=== PATIENT | female | born 1950 | race Caucasian/White ===

== ENCOUNTER 2021-09-26 10:09 | Outpatient (CLI) | payer MEDICARE, BC, SELFPAY ==
--- NOTE | 2021-09-26 10:15 | MR_ITS ---
[address] [address] Phone:?[phone] Fax:?[phone] Referring Physician Information: Martine Bryant [address] [facility] [address] Phone:?[phone] Fax:?[phone] Patient:Bassam Lugo D.O.B:?1950 Sex:?Female Phone:?[phone] [facility] MRN:?[id number] Exam Date:?09/26/2021 ? EXAM: MRI of the RIGHT KNEE, without contrast CLINICAL: Right knee pain. Evaluate for medial meniscal tear. COMPARISONS: None available. TECHNICAL: MR sequences of the right knee: sagittals: PD, PDFS coronals: PD, T2FS axials: PD, PDFS SEDATION: None. CONTRAST: None. FINDINGS: Ligaments: ACL: Intact ACL anteromedial and posterolateral bundles, without sprain or tear. PCL: Intact PCL, without acute or chronic injury. MCL: Intact MCL superficial and deep layers, without injury. LCL: Intact LCL, without injury. Posterolateral corner: Popliteus, biceps femoris, iliotibial band, and the popliteofibular ligament appear intact. Posteromedial corner: Semimembranosus, pes anserine tendons and posterior oblique ligament appear intact. Extensor mechanism: Patellar tendon: Intact, without tendinopathy. Quadriceps tendon: Intact, without tendinopathy. Retinacula: Medial and lateral retinacula are intact. Fat pads: Unremarkable infrapatellar Hoffa's, quadriceps and prefemoral fat pads. Patellofemoral joint: Patella: High-grade/full-thickness chondral loss involves the patellar median ridge extending into the medial and lateral patellar facets with mild subchondral reactive edema involving the patellar median ridge. Trochlea: No significant chondromalacia. Medial compartment: Medial meniscus: There is complex tearing involving the posterior horn on sagittal series 6 image 19-24 and also seen to involve the body segment on coronal series 8 images 16-19. There is displacement of a small meniscal flap fragment along the undersurface of the body segment as seen on coronal series 8 image 17. Medial cartilage: High-grade/full-thickness chondral loss involves the lateral aspect of the posterior weightbearing medial femoral condyle on sagittal series 6 image 20 and coronal series 8 image 20. Moderate chondral thinning involving the remainder of the weightbearing medial femoral condyle. Full-thickness chondral loss involves the peripheral posterior nonweightbearing medial femoral condyle on axial series 4 image 17. Lateral compartment: Lateral meniscus: Ill-defined degenerative fraying/tearing involves the posterior horn extending into the posterior root fibers on sagittal series 6 image 13-14. Minimal degenerative fraying/tearing involving the superior articular surface of the body segment on coronal series 8 image 16-17. Ill- defined degenerative fraying/tearing involves the anterior horn on sagittal series 6 images 9-12 with mucoid degeneration of the anterior root fibers. Lateral cartilage: There is heterogeneity of the lateral tibial plateau cartilage with grade 2-3 chondral thinning seen to involve the lateral tibial plateau. Lateral femoral condyle cartilage is preserved. Knee joint: Effusion: Small right knee effusion. Intra-articular bodies:?No convincing bodies identified. Popliteal cyst: Small. Bones: There is mild marrow edema and apparent small osseous impaction injury involving the peripheral medial tibial plateau adjacent to the medial meniscus on coronal series 8 images 16-18. Anterior knee subcutaneous soft tissue edema is demonstrated with prepatellar bursitis along the anterior patella and patellar tendon. IMPRESSION: 1. Tearing of the medial meniscus as above, with displacement of a meniscal flap fragment along the undersurface of the body segment. Mild marrow edema and apparent small osseous impaction injury involving the peripheral medial tibial plateau adjacent to the medial meniscal tear. 2. Scattered ill-defined degenerative fraying/tearing involving the lateral meniscus. 3. Tricompartmental chondromalacia as above. 4. Small joint effusion with a small popliteal cyst. 5. Prepatellar bursitis with adjacent anterior knee subcutaneous soft tissue edema. DELORESZ Electronically signed on 09/26/2021 12:33:00 PM by Hola Mejia D.O.
== END 2021-09-26 10:10 | disposition home or self-care (01) ==
LOC: MRI 10:09
PROVIDERS: PCP Family Medicine; Visit Provider Physician Assistant Surgical
DX: M25.561 Pain in right knee (principal); S83.241A Other tear of medial meniscus, current injury, right knee, initial encounter; M25.461 Effusion, right knee; M71.21 Synovial cyst of popliteal space [Baker], right knee; M70.41 Prepatellar bursitis, right knee; S83.281A Other tear of lateral meniscus, current injury, right knee, initial encounter
CPT/HCPCS: 73721

== ENCOUNTER 2021-10-20 06:29 | Day surgery (SDC) | payer MEDICARE, BC, SELFPAY ==
[2021-10-20] VITALS (11 sets, daily range): BP systolic 92–116; BP diastolic 53–63; PULSE 55–72; RESP 16–20; TEMP 35.8–36.7; O2SAT 94–100; BMI 26.8
[2021-10-20] MEDS: LACTATED RINGERS 1000 ML 1,000 ML 100 ML IV (07:00)
[2021-10-20] MEDS: SODIUM CHLORIDE 0.9 % (FLUSH) 10 ML SYRINGE IVF (07:09)
[2021-10-20] MEDS: CEFAZOLIN 2 GM INJ IVP (07:40)
[2021-10-20] MEDS: BUPIVACAINE 0.25% 30 ML INJECTION (08:07)
--- NOTE | 2021-10-20 08:14 | PM.ORPRC ---
Procedure Note Date of procedure: 10/20/21 Procedure: SURGEON: Brett Powell MD POLYSILICON PREPARATION WORKER: Flakita Escobedo PA-C PREOPERATIVE DIAGNOSIS: Right knee medial and lateral meniscus tear POSTOPERATIVE DIAGNOSIS: Right knee medial and lateral meniscus tear NAME OF OPERATION: Right knee arthroscopic partial medial and lateral meniscectomy ANESTHESIA: Spinal ESTIMATED BLOOD LOSS: 0 mL COMPLICATIONS: None SPECIMENS: None DRAINS: None PREOPERATIVE ANTIBIOTICS: Ancef 2 gram INDICATIONS: The patient is a 71-year-old female with a history of right knee pain. MRI scan is consistent with the diagnoses above . Despite appropriate nonoperative management, including activity modification, antiinflammatories, [id number] pain medication, bracing, physical therapy, and injections they continue to have pain and disability. Operative intervention was offered. The risks, benefits and expected outcomes were discussed in detail. These included but were not limited to: Infection, bleeding, injury to blood vessel or nerve, venous thromboembolism. All questions were answered to their satisfaction. PROCEDURE: Spinal anesthesia was administered. The patient was placed supine on the operating room table. The right lower extremity was prepped and draped in the usual sterile fashion. The limb was exsanguinated with the Car bandage. The pneumatic tourniquet was inflated to 300 mmHg. A standard anterolateral portal was established. The arthroscope was introduced. The working portal was established anteromedially. Diagnostic arthroscopy was performed with findings as follows: The suprapatellar pouch is normal. Articular surface on the patella is normal. Articular surface on the trochlea is normal. The medial gutter is normal. The medial compartment shows a focal area of grade 3 change on the central, weight-bearing portion of the medial femoral condyle, normal articular cartilage on the medial tibial plateau. The medial meniscus has a degenerative tear of the posterior horn, primarily consisting of fraying of the leading edge, with a horizontal cleavage tear of the undersurface of the posterior horn, extending into the midbody. The notch shows the ACL to be intact. The lateral compartment shows normal articular cartilage on the lateral femoral condyle and lateral tibial plateau. The lateral meniscus has complex degenerative tearing of entirety. This consists of longitudinal, degenerative tearing of the anterior horn, degenerative fraying of the leading edge of the midbody and posterior horn. The lateral gutter is normal. The posterior horn of the medial meniscus was debrided to a stable base using a combination of baskets and shaver through both portals. Likewise, the degenerative tearing of lateral meniscus was debrided with the shaver through both portals. This does not result in detachment of the meniscus from the tibia anteriorly. Unstable chondral flaps on the medial femoral condyle were debrided with the shaver through both portals, taken to a stable base. Arthroscopic instruments were removed, the portal sites were Steri-Stripped closed, the knee was infiltrated with 30 mL of 0.25% Marcaine without epinephrine. A dry dressing was applied, the tourniquet was released. Sponge and needle counts were correct x 2. The patient tolerated the procedure well. There were no apparent complications. They were carefully transferred to the hospital bed and taken to the postanesthesia care unit in satisfactory condition. PLAN: The patient will be discharged to home. They may weightbear as tolerates. Range of motion will be unrestricted. They will follow up in the office next week for a wound check.
--- NOTE | 2021-10-20 08:22 | W.ANESCHARGE ---
Anesthesia Charges Start Date/Time Anesthesia Start Date: 10/20/21 Anesthesia Start Time: 07:32 Stop Date/Time Anesthesia Stop Date: 10/20/21 Anesthesia Stop Time: 08:20 Summary Emergency: No Extremes of Age: Over 70-CPT 97902
--- NOTE | 2021-10-20 08:33 | W.ANESCHARGE ---
Anesthesia Charges Start Date/Time Anesthesia Start Date: 10/20/21 Anesthesia Start Time: 07:32 Stop Date/Time Anesthesia Stop Date: 10/20/21 Anesthesia Stop Time: 08:20 Summary Emergency: No Extremes of Age: Over 71-CPT [id number]
== END 2021-10-20 09:39 | disposition home or self-care (01) ==
PROVIDERS: PCP Family Medicine; Visit Provider Orthopaedic Surgery
PROC: (CPT 29870; principal; 2021-10-20 07:45)
DX: M23.221 Derangement of posterior horn of medial meniscus due to old tear or injury, right knee (principal); M23.251 Derangement of posterior horn of lateral meniscus due to old tear or injury, right knee; M23.241 Derangement of anterior horn of lateral meniscus due to old tear or injury, right knee
CPT/HCPCS: 29880; 01400; 99100; J0690; J2250; J2400; J2405; J3010; J3490; J7120

== ENCOUNTER 2022-11-05 08:28 | Day surgery (SDC) | payer MEDICARE, BC, SELFPAY ==
[2022-11-05] VITALS (19 sets, daily range): BP systolic 101–124; BP diastolic 52–88; PULSE 55–81; RESP 16–20; TEMP 36.1–37.1; O2SAT 94–98; BMI 28.0
[2022-11-05] MEDS: LACTATED RINGERS 1000 ML 1,000 ML 100 ML IV ×2 (07:50→12:24)
[2022-11-05 08:59] LABS: Hemoglobin* 13.8 gm/dL (12.0-16.0)
[2022-11-05 09:17] LABS: Creatinine* 0.7 mg/dL (0.5-1.5); Estimated Glomerular Filt Rate 92 ml/min
[2022-11-05] MEDS: CEFAZOLIN 2 GM INJ IVP (10:50)
--- NOTE | 2022-11-05 12:17 | W.ANESCHARGE ---
Anesthesia Charges Start Date/Time Anesthesia Start Date: 11/05/22 Anesthesia Start Time: 10:37 Stop Date/Time Anesthesia Stop Date: 11/05/22 Anesthesia Stop Time: 12:26 Summary Extremes of Age - Over 70 or under 1: MDA
[2022-11-05] MEDS: ESTROGENS, CONJUGATED VAGINAL 0.625 MG/G CREAM 1 APPLIC VAGINAL (12:20)
--- NOTE | 2022-11-05 12:28 | W.ANESCHARGE ---
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
--- NOTE | 2022-11-05 12:35 | P.GYNPRC_ITS ---
Procedure Note Date of procedure: 11/05/22 Pre-op diagnosis: 1. Symptomatic stage 2 rectocele, 2. Cervical polyp Post-op diagnosis: same Procedure: Posterior colpoperineorrhaphy Removal of cervical polyp Anesthesia: MAC and spinal Complications: None Surgeon: Gloria Amato MD Natural Resource Officer: Desiree Wilson Estimated blood loss (mL): 75 IV fluids (mL): 1,000 Pathology: specimen obtained, sent to pathology Condition: stable Disposition: floor Findings: Upon pelvic exam under anesthesia, stage II rectocele was again noted. There was of pedunculated deep pink ectocervical polyp, 1 cm in greatest dimension. Procedure Description: Patient was taken to the operating room with IV running. She received cefazolin in preoperative prophylaxis. Spinal anesthesia was administered. She was positioned on operating table in dorsal lithotomy position with her legs fully supported in Yellofin stirrups. She was prepped and draped in the usual sterile fashion. Becerra catheter was inserted. Exam under anesthesia was performed for the above-noted findings. The vaginal epithelium overlying the apex of the visible rectocele was grasped with Allis clamp in the midline. The vaginal introitus was grasped with 2 Allis clamps approximately 1.5 cm lateral to the midline. The subcutaneous tissues ov erlying the anterior perineal body and the posterior vaginal wall were infiltrated with a total of 20 mL 1% lidocaine with dilute epinephrine. A small triangle of perineal skin was dissected off of the midline anterior perineal body, between Allis clamps. A midline incision was made over the posterior vaginal wall, extending from the vaginal introitus to the apex of the rectocele. The vaginal epithelium was dissected off the underlying fibro muscularis with a combination of scissors and gentle blunt dissection with operative sponges. The fibromuscularis was then plicated in the midline, proceeding cephad to caudad, using interrupted sutures of 0 Vicryl. Two additional sutures were placed beneath the apex after of palpable defect was noted on rectal exam there. After that point, repeat rectal exam revealed no palpable suture material within the rectum. The perineal body was plicated with 0 Vicryl. The vaginal epithelium was then trimmed bilaterally. It was closed with a running stitch of 2 0 Vicryl, again proceeding cephalic to caudad. The cervix was then visualized with help of a Hayden retractor. The cervical polyp was grasped with ring forcep and removed with twisting and gentle traction. This was sent to pathology. Hemostasis was noted. There was bleeding throughout the closure of the vaginal epithelium, and oozing noted beneath the plication sutures in the vaginal fibromuscularis. Therefore, vaginal pack coated in Premarin cream was placed. Patient tolerated procedure well was taken to recovery area in stable condition.
[2022-11-05] MEDS: KETOROLAC 15 MG/ML inj IVP ×2 (16:13→22:03)
--- NOTE | 2022-11-05 18:51 | PC.NURSE ---
Nursing Care Hours: 1415-1474 Pt arrived from PACU alert and oriented. VSS. Becerra patent. Small amount of bloody drainage to vaginal packing, once up and walking it advanced to moderate. Pt tolerated regular diet. IV patent. Walk lombardo x1, independent in room. No c/o pain, ice pack provided for swelling. Pt states can feel the vaginal packing. Mirna cares done x1
[2022-11-05] MEDS: DOCUSATE SODIUM 100 MG CAPSULE PO (21:01)
[2022-11-05] MEDS: MELATONIN 3 MG TABLET PO (21:01)
[2022-11-05] MEDS: SODIUM CHLORIDE 0.9 % (FLUSH) 10 ML SYRINGE IVF (22:03)
[2022-11-06] MEDS: KETOROLAC 15 MG/ML inj IVP ×2 (04:00→09:52)
[2022-11-06] MEDS: SODIUM CHLORIDE 0.9 % (FLUSH) 10 ML SYRINGE IVF (04:00)
[2022-11-06 07:00] VITALS: BP 112/57; PULSE 64; RESP 16; TEMP 36.7; O2SAT 94
--- NOTE | 2022-11-06 07:54 | PC.NURSE ---
Pt alert and oriented x3. Afebrile. Pt reports 0-2/10 pain in groin area, pain managed with PRN medications. Pt's ellis catheter is patent and draining. Pt walked in the halls x2, passing gas, and tolerating a regular diet. Pt up ad oli in room. Pt slept throughout most of night. Night uneventful.
[2022-11-06] MEDS: DOCUSATE SODIUM 100 MG CAPSULE PO (08:19)
--- NOTE | 2022-11-06 08:40 | PM.GYNDS1 ---
DS: Providers Provider Date Seen: 11/06/22 Date of admission: 11/05/22 Primary care physician: Windy Lilly MD Admitting Clinician: Gloria Amato MD Attending Physician on discharge: Gloria Amato MD Date of Discharge: 11/06/22 DS: Diagnosis Discharge Diagnosis (1) Cervical polyp: Status: Acute (2) Rectocele: Status: Acute Problem details: stage 2, symptomatic (3) H/O rectocele repair: Status: Acute CASH MANAGEMENT COORDINATOR-Discharge Summary Hospital Course Hospital Course Narrative: Patient is a 72 year old admitted on 11/05/2022 for posterior colpoperineorrhaphy and excision of cervical polyp. Indication for surgery: Symptomatic stage II rectocele and cervical polyp. Intraoperative findings were notable for 1 cm polyp on the external cervix. She had considerable oozing from the fibromuscularis, with EBL 75 cc. Vaginal packing was placed for this reason, and removed on POD #1. Postoperative course has been uneventful. Vitals have been stable. She has remained afebrile. Today, on postoperative day 1, she reports the pain is well controlled. She has been able to ambulate Without difficulty, despite vaginal packing in place. She is tolerating regular diet. She is passing flatus. Becerra catheter has been removed, and she is voiding without difficulty. [] Time Spent with Patient Time attestation: Total time spent providing and/or coordinating discharge services: Time spent: Less than 30 minutes CASH MANAGEMENT COORDINATOR - Exam Physical Exam: Vital signs: Temp Pulse Resp BP Pulse Ox O2 Del Method 98.1 F 64 16 112/57 L 94 Room Air 11/06/22 07:00 11/06/22 07:00 11/06/22 07:00 11/06/22 07:00 11/06/22 07:00 11/06/22 07:00 Narrative: General: Pleasant, no acute distress Heart: Regular rate and rhythm, no murmur or gallop Lungs: Clear to auscultation bilaterally Abdomen: Soft, nontender, NABS, no distention Lower extremities: No edema or erythema Perineum / vulva: Vaginal packing is not saturated. No vaginal bleeding after removal of packing. CASH MANAGEMENT COORDINATOR - DS: Data Data Completed and Pending Labs on day of discharge: Labs from last 24 hours 11/06/22 11/05/22 06:00 08:50 Hgb 11.0 L 13.8 Creatinine 0.7 Estimated Creat Clear 48.30 Estimated GFR 92 Blood Type O Positive Antibody Screen NEGATIVE Procedures Procedures: Procedures Operation Date: 11/05/22 09:55 Actual Procedure Side Surgeon p Excision of Cervical Polyp, Repair Rectocele, colpoperineorrhaphy Gloria Amato MD Discharge Plan Discharge Disposition: Home, Self-Care Discharging Surgeon: Gloria Amato Follow-Up Appointment: [address] Amato Prescriptions: New docusate sodium 100 mg Capsule 100 mg PO BID Qty: 0 0RF ibuprofen 600 mg tablet 600 mg PO Q6H PRNQty: 60 0RF Continued aspirin 81 mg tablet,delayed release (DR/EC) 81 mg PO QDAY calcium carbonate-vitamin D3 [Calcium 600 + D(3)] 600 mg-10 mcg (400 unit) tablet 1 tab PO QDAY estradiol [Estrace] 0.01 % (0.1 mg/gram) cream 1 g vaginal 2XW glucosamine HCl 1,500 mg tablet 1,500 mg PO QDAY Rx Instructions: administer with a meal PreserVision AREDS-2 250-90-40-1 mg capsule 1 tab PO BID albuterol sulfate 90 mcg/actuation HFA aerosol inhaler 2 puff inhalation Q4-6H PRN levothyroxine 25 mcg capsule 25 mcg PO QDAY sennosides [Senna Lax] 8.6 mg tablet 17.2 mg PO QDAY PRN clobetasol 0.05 % ointment 1 applic topical QHS 28 Days Qty: 15 3RF Discontinued ferrous sulfate [iron] 325 mg (65 mg iron) tablet 325 mg PO QDAY docusate sodium 100 mg capsule 100 mg PO QDAY Hold Instructions: not needed Activity Detail: Nothing per vagina X 6 weeks. No lifting greater than 20 lbs for 6 weeks. Assure regular, soft bowel movement daily. Take docusate twice daily, and other laxatives of your choice as needed. Discharge Diet: Regular Patient Instructions: Posterior Vaginal Repair (DC) Forms: Work/School Release Follow-up: Widny Lilly MD [Primary Care Provider] - Gloria Amato MD [Staff Physician] - Discharge Orders: Discharge Order (Routine); Ordered 11/06/22 Ordered By: Gloria Amato
--- NOTE | 2022-11-06 10:45 | PC.NURSE ---
End of Shift: Pt AO, pleasant and cooperative throughout shift. Denies any pain. Dr. Amato removed vaginal packing and ordered public relations writer to input 300cc sterile water through ellis catheter and remove ellis, then monitor urine output after 30 minutes. Pt reported 200cc in orally and had a total output of 500cc. Pt tolerated well, denied any discomfort. Dr. Amato updated and ordered pt for discharge. IV removed without difficulty, pt ambulated off unit with after discharge teaching.
== END 2022-11-06 10:08 | disposition home or self-care (01) ==
LOC: OR 08:29 → MEDSURG 11-06 08:43
PROVIDERS: PCP Family Medicine; Visit Provider Obstetrics & Gynecology
PROC: 00BW0ZZ Excision of Cervical Spinal Cord, Open Approach (ICD-10-PCS; CPT 57500; principal; 2022-11-05 09:45)
DX: N81.6 Rectocele (principal); N84.1 Polyp of cervix uteri
CPT/HCPCS: 57250; 57500; 00940; 36415; 82565; 85018; 86850; 86900; 86901; 88305; 99100; 99211; A9270; J0690; J1100; J1885; J2250; J2405; J2704; J3010; J7120

== ENCOUNTER 2023-07-05 12:20 | Emergency (ER) | payer MEDICARE, BC, SELFPAY ==
[2023-07-05] VITALS (28 sets, daily range): BP systolic 120–138; BP diastolic 61–76; PULSE 58–78; RESP 16; TEMP 36.7; O2SAT 95–100; BMI 26.6
--- NOTE | 2023-07-05 12:58 | CT_ITS ---
Patient: VANCE PATTERSON Facility:?[facility] R[facility] Patient ID:?[id number] Site Patient ID:?[id number]. Site :?1950 Study:?CT-Neck Angio 95CC ISOVUE 370 NON ACUTE-07/05/2023 1:37:01 PM Ordering Physician:?DR. VALDEZ Final Report: DATE: 07/05/2023 CLINICAL HISTORY: Patient with vertigo. History of vertebral artery fibromuscular dysplasia. TECHNIQUE: Standard helical CT image acquisition of the neck up to the skull base after bolus intravenous contrast enhancement. 2D and 3D MIP images for post-processing were performed and interpreted on an independent workstation and 3D images were permanently archived. COMPARISON: CT same day. FINDINGS: The origins of the great vessels from the aortic arch are patent. The origin of the right vertebral artery is patent. The origin of the left vertebral artery is patent. The common carotid arteries are patent. There is no stenosis at the origin of the right internal carotid artery. There is no stenosis at the origin of the left internal carotid artery. The rest of the cervical segments of the internal carotid arteries are patent up to the skull base. The vertebral arteries are codominant. The cervical segments of the vertebral arteries are patent up to the skull base. The visualized lung apices are unremarkable. The thyroid gland is unremarkable. The soft tissues of the neck are unremarkable. There are degenerative changes in the cervical spine. IMPRESSION: Patent cervical vasculature without specific evidence of fibromuscular dysplasia. Please note that all CT scans at this facility use dose modulation, iterative reconstruction, and/or weight-based dosing when appropriate to reduce radiation dose to as low as reasonably achievable. Dictated by Yanelis Smith MD @ 07/05/2023 5:17:55 PM Signed by:?Yanelis Smith MD @07/05/2023 5:17:55 PM (Electronic Signature)
--- NOTE | 2023-07-05 12:58 | CT_ITS ---
Patient: VANCE PATTERSON Facility:?[facility] R[facility] Patient ID:?[id number] Site Patient ID:?[id number]. Site :?1950 Study:?CT-Head Angio 95CC ISOVUE 370 NON ACUTE-07/05/2023 1:36:32 PM Ordering Physician:?DR. VALDEZ Final Report: DATE: 07/05/2023 CLINICAL HISTORY: Patient with vertigo. TECHNIQUE: Standard helical CT image acquisition through the intracranial circulation following intravenous administration of contrast material with bolus tracking. 2D and 3D MIP images for post-processing were performed and interpreted on an independent workstation and 3D images were permanently archived. COMPARISON: CT same day. FINDINGS: There is no cerebral aneurysm or large vessel occlusion. The right internal carotid artery is normal. The right middle cerebral artery and its branches are normal. The right anterior cerebral artery and its branches are normal. The left internal carotid artery is normal. The left middle cerebral artery and its branches are normal. The left anterior cerebral artery and its branches are normal. The anterior communicating artery is well visualized and appears normal. The right vertebral artery and PICA are normal. The left vertebral artery and PICA are normal. The vertebral arteries are codominant. The basilar artery is patent and appears normal. The right posterior cerebral artery is normal. The left posterior cerebral artery is normal. The visualized venous structures are patent. IMPRESSION: Patent proximal intracranial vasculature without intracranial aneurysms. Please note that all CT scans at this facility use dose modulation, iterative reconstruction, and/or weight-based dosing when appropriate to reduce radiation dose to as low as reasonably achievable. Dictated by Yanelis Smith MD @ 07/05/2023 5:20:23 PM Signed by:?Yanelis Smith MD @07/05/2023 5:20:23 PM (Electronic Signature)
--- NOTE | 2023-07-05 12:58 | CT_ITS ---
Patient: VANCE PATTERSON Facility:?[facility] RIS Patient ID:?[id number] Site Patient ID:?[id number]. Site :?1950 Study:?CT-Head WITHOUT-07/05/2023 1:35:45 PM Ordering Physician:?DR. VALDEZ Final Report: INDICATION: Vertigo times 11 hours. History of vertebral artery FMD. TECHNIQUE: CT head without contrast. COMPARISON: None. FINDINGS: There is no mass effect or midline shift. No hydrocephalus. No CT evidence of acute hemorrhage or infarction. Small calcifications in the bilateral cerebellum are likely related to sequela of prior insult. No abnormal extra-axial fluid collection. Bone windows show no acute calvarial fracture. Paranasal sinuses and orbits as imaged are unremarkable. Mastoid air cells are clear. IMPRESSION: No acute intracranial abnormality. Dictated by Calixto Biggs MD @ 07/05/2023 1:51:17 PM Please note that all CT scans at this facility use dose modulation, iterative reconstruction, and/or weight-based dosing when appropriate to reduce radiation dose to as low as reasonably achievable. Dictated by: Calixto Biggs MD @ 07/05/2023 13:51:34 Signed by:?Calixto Biggs MD @07/05/2023 1:51:34 PM (Electronic Signature)
[2023-07-05 13:29] LABS: Basophils Absolute Auto 0.02 K/uL (0.00-0.30); Basophils Percent Auto 0.3 % (0.0-3.0); Eosinophils Absolute Auto 0.01 K/uL (0.00-0.50); Eosinophils Percent Auto 0.2 % (0.0-7.0); Hematocrit 36.5 % (33.0-51.0); Hemoglobin* 11.4 gm/dL (12.0-16.0); Lymphocytes Percent Auto 11.2 % (20-44); Mean Corpuscular HGB Conc 31 gm/dL (32-36); Mean Corpuscular Hemoglobin 26 pg (26-34); Mean Corpuscular Volume 84 fL (80-100); Monocytes Percent Auto 3.8 % (0.0-11.0); Neutrophils Percent Auto 84.5 % (42.0-72.0); Platelet Count* 258 K/uL (140-440); RDW Coefficient of Variation % 13.9 % (11.5-15.5); Red Blood Count 4.35 m/uL (4.00-5.20); Slide Review Reflex No; White Blood Count* 5.72 K/uL (4.50-11.00)
[2023-07-05] MEDS: 0.9 % SODIUM CHLORIDE 1000 ml 1,000 ML IV (13:38)
[2023-07-05 13:45] LABS: INR 0.92 (0.91-1.10)
[2023-07-05 13:46] LABS: Chloride* 105 mmol/L (96-114); Partial Thromboplastin Time* 29 Seconds (23-33); Sodium* 136 mmol/L (135-149)
[2023-07-05 13:48] LABS: D Dimer Quantitative* 0.36 ug/ml (0.00-0.50)
[2023-07-05 13:49] LABS: Anion Gap 4 mEq/L (7-15); Blood Urea Nitrogen* 16 mg/dL (7-30); Calcium* 8.6 mg/dL (8.4-10.6); Carbon Dioxide* 27 mmol/L (20-32); Creatinine* 0.6 mg/dL (0.5-1.5); Est. Creatinine Clearance* 49.45; Estimated Glomerular Filt Rate 95 ml/min; Glucose* 115 mg/dL (60-115)
--- NOTE | 2023-07-05 14:47 | MR_ITS ---
Patient: VANCE PATTERSON Facility:?[facility] R[facility] Patient ID:?[id number] Site Patient ID:?[id number]. Site :?1950 Study:?MRI-Head WO-07/05/2023 3:25:04 PM Ordering Physician:NITHIN Final Report: INDICATION: Vertigo. Dizziness. TECHNIQUE: Brain MRI without contrast. COMPARISON: Head CT from 07/05/2023. FINDINGS: No evidence of acute ischemia. No evidence of acute or chronic intracranial blood products. Few small FLAIR hyperintensities scattered within the supratentorial white matter, typical for chronic microvascular ischemic change. No mass effect or herniation. No hydrocephalus or extra-axial collections. The pituitary gland, parasellar structures and optic chiasm are normal. Posterior fossa is normal. All the major intracranial vascular structures demonstrate normal flow-related signal. The orbital contents are normal. No calvarial or skull base marrow replacing process. No obstructive sinus disease. A right mastoid effusion. No extracranial soft tissue findings. IMPRESSION: 1. No acute infarction or other acute intracranial pathology. 2. Mild chronic microvascular ischemic changes. Dictated by Romain Bennett MD @ 07/05/2023 3:35:39 PM Signed by:?Romain Bennett MD @07/05/2023 3:35:39 PM (Electronic Signature)
[2023-07-05] MEDS: LORazepam 2 MG/ML inj 0.5 MG IVP (14:58)
--- NOTE | 2023-07-05 15:36 | ED.DIZZY ---
HPI - Dizziness General Date Seen: 07/05/23 Chief Complaint: Dizziness/Vertigo Stated Complaint: dizziness,vertigo Time Seen by Provider: 07/05/23 12:39 Source: patient and family Mode of arrival: ambulatory Limitations: no limitations History of Present Illness HPI Narrative: 2008 Cerebral angiogram-- has FFMD. takes an ASA for the issue. last night woke up with dizziness and the whole room was twirling around. woke up this am continuing to be dizzy. if keeps eyes closed then things are not moving around. vomited everything up from this am about 10 minutes ago. this change is different than normal for the krause. 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 Presents here with her for history of dizziness/vertigo. This started when she woke up at 2 in the morning. She then went back to sleep, and had it again when she woke up at 7:00 a.m. she has never specifically had these type of symptoms before, she notes that it occurs while she is at rest, improved with closing her eyes, but not associated with moving her head. She denies any change in her hearing, no history of head injury, she denies a headache, she has had no double vision associated with this it almost feels like she is on a ship. No weakness noted in her arms or legs, she is right-hand dominant no previous history of strokes or heart disease. She has had no nausea vomiting and she is not taking any medications for this. No history of alcohol intake. She finds that she walks wide-based with her . 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 She really tries to avoid any sort of neck extension because of this. This was diagnosed because of her chronic headaches. MD elicited complaint: dizziness Onset (ago): hour(s) Timing: awoke with symptoms Severity: moderate Description: sense of movement, room spinning and off-balance History of similar symptoms: No Exacerbating factors: keeping eyes closed Relieving factors: keeping eyes open Associated symptoms: nausea and vomiting Stroke scale total: 0 Related Data Home Medications Medication Instructions Recorded Confirmed albuterol sulfate 90 mcg/actuation 2 puff inhalation Q4-6H PRN 09/24/21 07/05/23 aerosol inhaler aspirin 81 mg tablet,delayed 81 mg PO QDAY 09/24/21 07/05/23 release calcium carbonate 600 mg-vitamin 1 tab PO QDAY 09/24/21 07/05/23 D3 10 mcg (400 unit) tablet (Calcium 600 + D(3)) estradiol 0.01% (0.1 mg/gram) 1 g vaginal 2XW 09/24/21 07/05/23 vaginal cream (Estrace) glucosamine HCl 1,500 mg tablet 1,500 mg PO QDAY 09/24/21 07/05/23 levothyroxine 25 mcg capsule 25 mcg PO QDAY 09/24/21 07/05/23 sennosides 8.6 mg tablet (Senna 17.2 mg PO QDAY PRN 09/24/21 07/05/23 Lax) vit C 250 mg-vit E 90 mg-zinc 40 1 tab PO BID 09/24/21 07/05/23 mg-copper 1 [id number] capsule (PreserVision AREDS-2) alendronate 70 mg tablet 70 mg PO 07/05/23 budesonide-formoterol HFA 80 1 - 2 puff inhalation Q4H PRN 07/05/23 07/05/23 mcg-4.5 mcg/actuation aerosol wheezing inhaler Previous Rx's Medication Instructions Recorded docusate sodium 100 mg capsule 100 mg PO BID #0 caps 11/06/22 ibuprofen 600 mg tablet 600 mg PO Q6H PRN #60 tabs 11/06/22 Allergies Allergy/AdvReac Type Severity Reaction Status Date / Time No Known Drug Allergies Allergy Verified 07/05/23 13:47 Review of Systems Status of ROS: Reports: 10 or more systems reviewed and unremarkable except as noted in History and below [facility] Medical History Asthma ?J45.909 - Unspecified asthma, uncomplicated (ICD-10) Osteopenia ?M85.80 - Other specified disorders of bone density and structure, unspecified site (ICD-10) Cervical polyp ?N84.1 - Polyp of cervix uteri (ICD-10) Dry eye ?H04.129 - Dry eye syndrome of unspecified lacrimal gland (ICD-10) Diverticulosis of colon (without mention of hemorrhage) ?K57.30 - Diverticulosis of large intestine without perforation or abscess without bleeding (ICD-10) Hyperlipemia ?E78.5 - Hyperlipidemia, unspecified (ICD-10) Hypothyroidism ?E03.9 - Hypothyroidism, unspecified (ICD-10) Surgical History H/O umbilical hernia repair ?Z98.890 - Other specified postprocedural states (ICD-10) ?Z87.19 - Personal history of other diseases of the digestive system (ICD-10) Status post arthroscopic partial lateral meniscectomy (10/20/21) ?Z98.890 - Other specified postprocedural states (ICD-10) Status post arthroscopic partial medial meniscectomy (10/20/21) ?Z98.890 - Other specified postprocedural states (ICD-10) H/O tubal ligation (~1992) ?Z98.51 - Tubal ligation status (ICD-10) Hx of appendectomy (~1970) ?Z90.49 - Acquired absence of other specified parts of digestive tract (ICD-10) 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) ?Z96.641 - Presence of right artificial hip joint (ICD-10) History of total left hip replacement (01/09/21) ?Z96.642 - Presence of left artificial hip joint (ICD-10) Family History Brother Alcohol dependence Lung cancer Mother Breast cancer Thyroid disease Father Lung cancer Sister Thyroid disease Social History What is your current living situation?: I presently have a place to live Problems where you live: no known problems In the past 12 months, utilities in danger of being shut off: no In past 12 months, lack of transportation kept you from medical appts, meetings, work, or getting things needed for daily living: no How hard is it for you to pay for the very basics like food, housing, medical care, and heating: not very hard In the past 12 mos, have been you worried that your food would run out before you had money to buy more?: never true In the past 12 mos, the food you bought just didn't last and you didn't have money to buy more?: never true Smoking Status: Never smoker Do you use any of these nicotine containing products: None Second hand tobacco smoke exposure: No How often do you have a drink containing alcohol: 2-4 times a month AUDIT-C Alcohol total score: 2 Non-prescribed substance use: denies use Caffeine: Yes Within the last year, have you been humiliated or emotionally abused in other ways by your partner or ex-partner: no Within the last year, have you been afraid of your partner or ex-partner: no Within the last year, have you been raped or forced to have any kind of sexual activity by your partner or ex-partner: no Within the last year, have you been kicked, hit, slapped, or otherwise physically hurt by your partner or ex-partner: no HARK total score: 0 service: No Exam Const: Vital Signs, click to edit/add: Vital Signs - 24 hr 07/05/23 12:28 07/05/23 12:57 07/05/23 12:58 Temperature 98.0 F Pulse Rate Pulse Rate [Pulse Oximeter] 78 Respiratory Rate 16 Blood Pressure Blood Pressure [Le ft Upper Arm] 132/70 Pulse Oximetry 97 99 98 Oxygen Delivery Me od Room Air 07/05/23 13:36 07/05/23 13:37 07/05/23 13:45 Temperature Pulse Rate 71 70 68 Pulse Rate [Pulse Oximeter] Respiratory Rate Blood Pressure 120/63 Blood Pressure [Le ft Upper Arm] Pulse Oximetry 97 96 98 Oxygen Delivery Me thod 07/05/23 14:00 07/05/23 14:02 07/05/23 14:15 Temperature Pulse Rate 61 66 60 Pulse Rate [Pulse Oximeter] Respiratory Rate Blood Pressure 122/61 Blood Pressure [Le ft Upper Arm] Pulse Oximetry 96 96 96 Oxygen Delivery Me thod 07/05/23 14:35 07/05/23 14:37 07/05/23 14:45 Temperature Pulse Rate 66 70 Pulse Rate [Pulse Oximeter] Respiratory Rate Blood Pressure 124/67 Blood Pressure [Le ft Upper Arm] Pulse Oximetry 100 98 Oxygen Delivery Me thod 07/05/23 15:48 07/05/23 15:49 07/05/23 16:00 Temperature Pulse Rate 68 71 75 Pulse Rate [Pulse Oximeter] Respiratory Rate Blood Pressure 133/71 Blood Pressure [Le ft Upper Arm] Pulse Oximetry 97 95 95 Oxygen Delivery Me thod 07/05/23 16:02 07/05/23 16:03 07/05/23 16:15 Temperature Pulse Rate 68 62 65 Pulse Rate [Pulse Oximeter] Respiratory Rate Blood Pressure 138/76 Blood Pressure [Le ft Upper Arm] Pulse Oximetry 95 95 95 Oxygen Delivery Me thod 07/05/23 16:30 07/05/23 16:32 07/05/23 16:33 Temperature Pulse Rate 70 70 71 Pulse Rate [Pulse Oximeter] Respiratory Rate Blood Pressure 136/76 Blood Pressure [Le ft Upper Arm] Pulse Oximetry 96 96 97 Oxygen Delivery Me thod 07/05/23 16:45 07/05/23 17:00 07/05/23 17:02 Temperature Pulse Rate 65 71 69 Pulse Rate [Pulse Oximeter] Respiratory Rate Blood Pressure 135/73 Blood Pressure [Le ft Upper Arm] Pulse Oximetry 95 97 96 Oxygen Delivery Me thod 07/05/23 17:03 07/05/23 17:15 07/05/23 17:30 Temperature Pulse Rate 69 58 L 71 Pulse Rate [Pulse Oximeter] Respiratory Rate Blood Pressure Blood Pressure [Le ft Upper Arm] Pulse Oximetry 98 96 99 Oxygen Delivery Me thod 07/05/23 17:32 Temperature Pulse Rate 70 Pulse Rate [Pulse Oximeter] Respiratory Rate Blood Pressure 134/73 Blood Pressure [Le ft Upper Arm] Pulse Oximetry 97 Oxygen Delivery Me thod Course Course ED Course: Patient improved with the benzodiazipine. She was able to walk to the bathroom without help, and clearly was not ataxic. We did do a MRI head and this showed no abn, this is very reassuring in ruling out stroke or cerebellar issues. At this point this seems like like a peripheral vertigo. We talked aboiut the diagnosis, treatment and follow up. Vital Signs Vital signs: Initial Vital Signs Temperature 98.0 F 07/05/23 12:28 Temperature Source Temporal Artery Scan 07/05/23 12:28 Pulse Rate 78 07/05/23 12:28 Respiratory Rate 16 07/05/23 12:28 Blood Pressure 132/70 07/05/23 12:28 Blood Pressure Mean 90 07/05/23 12:28 Blood Pressure Position Sitting 07/05/23 12:28 Pulse Oximetry 97 07/05/23 12:28 Oxygen Delivery Method Room Air 07/05/23 12:28 Vital Signs Temperature 98.0 F 07/05/23 12:28 Pulse Rate 78 07/05/23 12:28 Respiratory Rate 16 07/05/23 12:28 Blood Pressure 132/70 07/05/23 12:28 Pulse Oximetry 97 07/05/23 12:28 Oxygen Delivery Method Room Air 07/05/23 12:28 Temperature 98.0 F 07/05/23 12:28 Pulse Rate 70 07/05/23 17:32 Respiratory Rate 16 07/05/23 12:28 Blood Pressure 134/73 07/05/23 17:32 Pulse Oximetry 97 07/05/23 17:32 Oxygen Delivery Method Room Air 07/05/23 12:28 Medications Administered Medications: Discontinued Medications Generic Name Dose Route Start Last Admin Trade Name Freq PRN Reason Stop Dose Admin Sodium Chloride 1,000 mls @ 1,000 mls/hr 07/05/23 13:00 07/05/23 15:00 0.9 % Sodium Chloride 1000 Ml IV 07/05/23 13:59 Infused .Q1H SANA Infusion Lorazepam 0.5 mg 07/05/23 14:48 07/05/23 14:58 Lorazepam 2 Mg/Ml Inj IVP 07/05/23 14:49 0.5 mg ONCE ONE Administration MDM - Dizziness MDM Narrative Medical decision making narrative: during this evalulation I considered multiple diagnosis such as Stroke, both ischemic, hemmoragic, and embolic. I also considered HSV encephalitis, vertigo, peripheral and central, ottis media, Diane Bonner syndrome, Multiple sclerosis. Differential Diagnosis Differential diagnosis: Likely adverse reaction to drug, benign paroxysmal positional vertigo, orthostatic hypotension, vertebral basilar insufficiency, cerebrovascular accident, acute vestibular neuronitis and transient cerebral ischemia Medical Records Attestation: I reviewed the patient's medical records. Lab Data Attestation: I reviewed the patient's lab results. Labs: Lab Results 07/05/23 07/05/23 Range/Units 12:57 13:15 WBC 5.72 (4.50-11.00) K/uL RBC 4.35 (4.00-5.20) m/uL Hgb 11.4 L (12.0-16.0) gm/dL Hct 36.5 (33.0-51.0) % MCV 84 (80-100) fL MCH 26 (26-34) pg MCHC 31 L (32-36) gm/dL RDW Coeff of Alysa 13.9 (11.5-15.5) % Plt Count 258 (140-440) K/uL Neut % (Auto) 84.5 H (42.0-72.0) % Lymph % (Auto) 11.2 L (20-44) % Fountain % (Auto) 3.8 (0.0-11.0) % Eos % (Auto) 0.2 (0.0-7.0) % Baso % (Auto) 0.3 (0.0-3.0) % Neut # (Auto) 4.80 (1.7-7.0) K/uL Lymph # (Auto) 0.60 L (0.90-2.90) K/uL Fountain # (Auto) 0.20 (0.00-0.90) K/UL Eos # (Auto) 0.01 (0.00-0.50) K/uL Baso # (Auto) 0.02 (0.00-0.30) K/uL Abs Immat Gran (auto) 0.00 (0.00-0.30) K/uL Imm/Tot Granulo (auto) 0.0 % INR 0.92 (0.91-1.10) APTT 29 (23-33) Seconds D-Dimer Quant (PE/DVT) 0.36 (0.00-0.50) ug/ml Sodium 136 (135-149) mmol/L Potassium 4.0 (3.6-5.1) mmol/L Chloride 105 (96-114) mmol/L Carbon Dioxide 27 (20-32) mmol/L Anion Gap 4 L (7-15) mEq/L BUN 16 (7-30) mg/dL Creatinine 0.6 (0.5-1.5) mg/dL Estimated Creat Clear 49.45 Estimated GFR 95 ml/min Glucose 115 (60-115) mg/dL Calcium 8.6 (8.4-10.6) mg/dL POC Troponin I 0.00 L (0.01-0.04) ng/ml Imaging Data CT scan - head: Attestation: I have reviewed the pertinent imaging results. My impression: CT head, CTA head and MRI do not show an acute abn. ECG Data Attestation: I personally reviewed and interpreted this ECG as follows: ECG interpretation date: 07/05/23 Prior ECG tracings: not available for review Interpretation: EKG shows no acute findings. Discharge Plan Discharge Clinical Impression: Vertigo Patient Disposition: Home w/ Parent or Adult Condition: Improved Instructions: Vertigo (DC), Dizziness (ED) Additional Instructions: Patient will be discharged home her MRI did not show any acute strokes, and the CT of her head, along with the CTA were very reassuring she did improve with the lorazepam and we will give her some of that to go home. I do recommend that she use lorazepam but avoidance of alcohol with this lots of fluids and rest, and avoid moving her head faster changing positions for the 1st couple days. The lorazepam is sedating, and should take care with driving or operating machinery. I do recommend follow-up with her regular physician in the next couple days it there specific physical therapy that can help you. And returning here if any atypical symptoms occur. Activity Level: Light activity Discharge Diet: Regular Prescriptions: No Action aspirin 81 mg tablet,delayed release (DR/EC) 81 mg PO QDAY calcium carbonate-vitamin D3 [Calcium 600 + D(3)] 600 mg-10 mcg (400 unit) tablet 1 tab PO QDAY estradiol [Estrace] 0.01 % (0.1 mg/gram) cream 1 g vaginal 2XW glucosamine HCl 1,500 mg tablet 1,500 mg PO QDAY Rx Instructions: administer with a meal PreserVision AREDS-2 250-90-40-1 mg capsule 1 tab PO BID albuterol sulfate 90 mcg/actuation HFA aerosol inhaler 2 puff inhalation Q4-6H PRN levothyroxine 25 mcg capsule 25 mcg PO QDAY sennosides [Senna Lax] 8.6 mg tablet 17.2 mg PO QDAY PRN docusate sodium 100 mg Capsule 100 mg PO BID Qty: 0 0RF ibuprofen 600 mg tablet 600 mg PO Q6H PRNQty: 60 0RF alendronate 70 mg tablet 70 mg PO budesonide-formoterol 80-4.5 mcg/actuation HFA aerosol inhaler 1 - 2 puff INHALATION Q4H PRN (Reason: wheezing) Follow Up/Referrals: Windy Lilly MD [Primary Care Provider] - Stand Alone Forms: [facility] Info Inst[facility]
== END 2023-07-05 17:50 | disposition home or self-care (01) ==
PROVIDERS: Emergency Provider Family Medicine; PCP Family Medicine
DX: R42 Dizziness and giddiness (principal)
CPT/HCPCS: 36415; 70450; 70496; 70498; 70551; 80048; 84484; 85025; 85379; 85610; 85730; 93005; 94761; 99284; 99285; J2060; J7030; Q9967

== ENCOUNTER 2023-08-10 12:41 | Outpatient (CLI) | payer MEDICARE, BC, SELFPAY ==
--- NOTE | 2023-08-10 13:00 | MR_ITS ---
[address] [address] Phone:?[phone] Fax:?[phone] Referring Physician Information: Brett Powell M.D. [id number] [facility] [address] Phone:?[phone] Fax:?[phone] Patient:Bassam Lugo D.O.B:?1950 Sex:?Female Phone:?[phone] [facility] MRN:?[id number] Exam Date:?08/10/2023 EXAM: MRI of the LEFT KNEE, without contrast CLINICAL INFORMATION: Female, 73 years old, with left knee pain. INDICATION: Evaluate for meniscal tear. PRIOR SURGERY: None reported. PLAIN FILMS: Knee radiographs dated 08/02/2023. COMPARISONS: No prior MRIs available. TECHNICAL INFORMATION: Using a 1.5T MR scanner and a localizing surface coil: sagittals: PD, PDFS coronals: PD, T2FS axials: PD, PDFS SEDATION: None CONTRAST: None FINDINGS: Knee joint: Effusion: Mild-moderate left knee effusion. Popliteal cyst: Small, unruptured popliteal (Lyons's) cyst. Loose bodies: None. Subcutaneous and extra-articular soft tissues: Unremarkable. Ligaments: ACL: Intact ACL anteromedial and posterolateral bundles, without sprain or tear. PCL: Intact PCL, without acute or chronic injury. MCL: Intact MCL superficial and deep layers, without injury. LCL: Intact LCL, without injury. Posterolateral corner: No posterolateral corner soft tissue injury. Popliteus, biceps femoris, iliotibial band, popliteofibular ligament and lateral gastrocnemius are intact. Posteromedial corner: Moderate semimembranosus and/or pes anserine bursitis (axial T2FS series 4 images 19-28). Extensor mechanism: Patellar tendon: Intact, without tendinopathy. Quadriceps tendon: Intact, without tendinopathy. Retinacula: Medial and lateral retinacula are intact. Fat pads: Unremarkable infrapatellar Hoffa's, quadriceps and prefemoral fat pads. Medial compartment: Medial meniscus: Complex apical free edge and undersurface tearing of the posterior horn/root measures 1.6 cm and involves up to 75% of the meniscal thickness (sagittal PDFS series 6 images 11-15). Oblique horizontal undersurface tearing involves the remainder of the posterior horn over an additional 1.2 cm (sagittal PDFS series 6 images 8-11). Meniscal extrusion measures 4 mm. No parameniscal cyst. Medial femoral condyle & tibial plateau: Broad-based grade II chondromalacia throughout the central, weightbearing aspect of the medial compartment, with mild marginal osteophytosis. Lateral compartment: Lateral meniscus: No articular surface, meniscosynovial junction or root tear. No displacement, extrusion or parameniscal cyst. Lateral femoral condyle & tibial plateau: Mild signal heterogeneity, surface irregularity, and thinning of the articular cartilage without full-thickness chondral loss or reactive osseous changes. Patellofemoral joint: Patella: Broad-based grade III chondromalacia of the patella, with mild marginal osteophytosis. Trochlea: Generalized grade II chondromalacia of the trochlea, with mild marginal osteophytosis Proximal tibiofibular joint: Unremarkable, without evidence of ligament sprain injury, joint effusion or adjacent marrow edema. Bones: No stress/occult fractures or other marrow edema/pathology. IMPRESSION: 1. Complex tear of the medial meniscus, comprised of: -Apical free edge and undersurface tearing of the posterior horn/root measuring 1.6 cm and involving up to 75% of the meniscal thickness. -Oblique horizontal undersurface tearing of the remainder of the posterior horn measuring 1.2 cm. -4 mm of meniscal extrusion. 2. 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 3. Minimal osteoarthritis of the medial compartment. 4. Moderate semimembranosus and/or pes anserine bursitis. 5. Mild-moderate knee joint effusion with a small, unruptured popliteal (Lyons's) cyst. 6. No cruciate or collateral ligament sprain/tear. 7. No lateral meniscal tear or significant osteochondral abnormality of the lateral compartment. BC Electronically signed on 08/11/2023 7:20:00 AM by Jai Spivey M.D.
== END 2023-08-10 12:42 | disposition home or self-care (01) ==
LOC: MRI 12:42
PROVIDERS: PCP Family Medicine; Visit Provider Orthopaedic Surgery
DX: M25.562 Pain in left knee (principal); S83.232A Complex tear of medial meniscus, current injury, left knee, initial encounter; S83.242A Other tear of medial meniscus, current injury, left knee, initial encounter; S83.204A Other tear of unspecified meniscus, current injury, left knee, initial encounter; M17.12 Unilateral primary osteoarthritis, left knee; M71.562 Other bursitis, not elsewhere classified, left knee; M25.462 Effusion, left knee
CPT/HCPCS: 73721